=== PATIENT | male | born 1995 | race Caucasian/White ===

== ENCOUNTER 2017-06-27 17:20 | Inpatient (IN) | payer BC, OTHER ==
[~2017-06-27] VITALS: Ht 185.4 cm; Wt 63.5 kg
[2017-06-27 17:45] VITALS: BP 104/60
--- NOTE | 2017-06-27 17:45 | NUR ---
PRE-ASSESSMENT: Pre-Assessment done at intake office, client is A/O x4, he presents with flat affect, anxious mood. He appears disheveled, odorous. Pin point pupils noted. T 99, RR 18, BP 104/60, HR 102, spO2 @ 100% on RA, Pain on R leg 10. R leg with swelling, redness, tender and hot to touch, client stated "I got hit with Narcan." client did not give specifics as to what happen to his R leg. He is fully ambulatory, but favors R leg. He reports allergy to banana, stating his tongue and throat swells up. He denies any withdrawal-induced seizure. PMH: insomnia, peptic ulcer. He denies taking any medications at home. He denies any PCP. He denies any past medical history. Substance history Heroin 1gm IV daily for the past 5 months, last used this am @ 0300 1/2 gram IV.
[2017-06-27] MEDS ORDERED: MAG HYDROX/AL HYDROX/SIMETH 30 ML LIQUID UDC PO PRN (18:00)
[2017-06-27] MEDS ORDERED: ONDANSETRON ODT 4 MG TAB.RAPDIS SL PRN (18:00)
[2017-06-27] MEDS ORDERED: BUPRENORPHINE HCL 2 MG TAB.SUBL SL PRN (18:00)
[2017-06-27] MEDS ORDERED: ACETAMINOPHEN 325 MG TABLET PO PRN (18:00)
[2017-06-27] MEDS ORDERED: MIRALAX 17 GM POWD.PACK PO PRN (18:00)
[2017-06-27] MEDS ORDERED: DICYCLOMINE HCL 20 MG TABLET PO PRN (18:00)
[2017-06-27] MEDS ORDERED: MAGNESIUM HYDROXIDE 30 ML LIQUID UDC PO PRN (18:00)
[2017-06-27] MEDS ORDERED: ONDANSETRON 4 MG/2 ML VIAL IM PRN (18:00)
[2017-06-27] MEDS ORDERED: LOPERAMIDE HCL 2 MG CAPSULE PO PRN ×2 (18:00)
[2017-06-27] MEDS ORDERED: METHOCARBAMOL 750 MG TABLET PO PRN (18:00)
[2017-06-27] MEDS ORDERED: CLONIDINE HCL 0.1 MG TABLET PO PRN (18:00)
--- NOTE | 2017-06-27 18:00 | NUR ---
Client is in the floor, he is in room, tour given and client verbalizes how to use call light and bed settings. COWS 4.
[2017-06-27 18:27] LABS: BASOPHILS # (AUTO) 0.1 K/uL (0.0-8.0); BASOPHILS % (AUTO) 0.5 % (0.0-2.0); EOSINOPHILS # (AUTO) 0.6 K/uL (0.0-0.7); EOSINOPHILS % (AUTO) 4.3 % (0.0-7.0); HEMATOCRIT 35.7 % (40-50); LYMPHOCYTES # (AUTO) 2.3 K/UL (0.8-4.8); LYMPHOCYTES % (AUTO) 17.8 % (20.5-51.5); MEAN CORPUSCULAR HEMOGLOBIN 29.7 UUG (27.0-31.0); MEAN CORPUSCULAR HGB CONC 34 g/dL (32.0-37.0); MEAN CORPUSCULAR VOLUME 88.3 FL (82.0-92.0); MONOCYTES % (AUTO) 7.3 % (0.0-11.0); NEUTROPHILS # (AUTO) 9.1 K/UL (1.8-8.9); NEUTROPHILS % (AUTO) 70.1 % (38.5-71.5); PLATELET COUNT (AUTO) 366 K/UL (150-450); RED BLOOD CELL COUNT(AUTO) 4.04 MIL/UL (4.7-6.1); WHITE BLOOD COUNT (AUTO) 13.1 K/UL (4.0-11.2)
[2017-06-27 18:36] LABS: ALANINE AMINOTRANSFERASE 35 U/L (16-63); ALKALINE PHOSPHATASE 103 U/L (50-136); ASPARTATE AMINOTRANSFERASE 35 U/L (15-37); BILIRUBIN,TOTAL 0.5 mg/dL (0.2-1.0); CARBON DIOXIDE 30 mmol/L (21-32); CHLORIDE 95 mmol/L (98-107); GLUCOSE 98 mg/dL (74-106); MAGNESIUM 2.1 mg/dL (1.8-2.4); POTASSIUM 3.9 mmol/L (3.5-5.1); TOTAL PROTEIN, SERUM 7.6 g/dL (6.4-8.2); UREA NITROGEN, BLOOD 13 mg/dL (7-18)
[2017-06-27 18:51] LABS: BAND % (MANUAL) 9 % (0-10); EOSINOPHILS % (MANUAL) 4 % (0-8); LYMPHOCYTES % (MANUAL) 20 % (20-40); MONOCYTES % (MANUAL) 5 % (2-10); NEUTROPHILS % (MANUAL) 62 % (42-75)
[2017-06-27 18:57] LABS: ETHANOL < 3 MG/DL (0-0)
--- NOTE | 2017-06-27 19:00 | NUR ---
Start of Shift Patient Received. Patient is a 22 year old male readmitted to [facility] 06/27/17 to Opiate Dependence under the care of Dr. Vogt. Patient verbalizes allergies to Bananas and wishes to be full code. Patient denies past medical history. Skin check rendered and noted to be intact with right leg to be swollen. Patient explained swelling was due to Narcan injection. All other assessments to be completed. Patient is in bed sleeping but can be aroused verbally. Breathing even and non labored. No signs of pain or discomfort noted. Will continue to monitor.
--- NOTE | 2017-06-27 19:36 | NUR ---
END OF SHIFT Client is in bed, a/o x 4. He presents with anxious mood, flat affect. Temporal waste noted. Call light within reach. Endorsed to incoming nurse.
[2017-06-27 20:30] VITALS: BP 100/65
--- NOTE | 2017-06-27 20:30 | NUR ---
Admission Note Patient is a 22 year old male readmitted to [facility] to receive medical treatment for his Opiate Dependence under the care of Dr. Vogt. Patient verbalizes allergies to Bananas, wishes to be full code, following a regular diet, placed on fall precautions. Skin check rendered and noted to be intact with right leg swollen, red, and tender to touch. Patient explained "about a week and a half ago, I over dosed and was given a shot of Narcan and thats where it was from." Height noted as 6'1 and weight as 140. Lung sounds noted with wheezing and with a non productive cough. Patient explains "chuy had this cough for about 3 days." No fever noted. Bowel sounds are active in all 4 quadrants with LBM noted 06/26/17. No past medical history verbalized. No home medications noted. No history of Seizure noted. Patient denies any suicidal ideations. He describes his usage as: 1. Opiate-Heroin, for the past 5 months, using 1GM IV daily, with last use noted 06/27/17 0300 using 1 GM. Patient explains "nausea, diarrhea, tremors, Chills, sweats, stomach cramps, body aches, restless legs." Patient does not have a primary care provider and denies being hospitalized within the past 30 days. Patient reports of x10 treatment facilities with last one noted to be [facility], [place], [place] October 2016. Admitting COWS noted to be 7. All information relayed to MD with orders for labs to be rendered. PRN medications available for increased signs and symptoms of withdrawal. All needs attended to promptly. Will continue to monitor.
[2017-06-27] MEDS: DOXYCYCLINE HYCLATE 100 MG TABLET PO SCH (21:42)
--- NOTE | 2017-06-27 21:45 | NUR ---
PRN Medication Administration Patient verbalizing increased signs and symptoms of withdrawal. COWS noted to be 13. PRN Subutex 4mg administered as per order. encouraged patient to snack and drinking fluids as tolerated. Patient verbalized understanding. Will continue to monitor.
--- NOTE | 2017-06-27 22:45 | NUR ---
PRN Medication Reassessment Patient is in bed sleeping but easily aroused to verbal stimuli. Breathing even and non labored. Patient was given PRN Subutex for a COWS of 13. Patient is able to verbalize medication was effective in minimizing signs and symptoms to be tolerable. COWS noted to be 6. Will continue to monitor.
[2017-06-27 23:51] LABS: *AMPHETAMINE, URINE POSITIVE (NEGATIVE); *BARBITURATE, URINE NEGATIVE (NEGATIVE); *CANNABINOID, URINE NEGATIVE (NEGATIVE); *COCCAINE, URINE NEGATIVE (NEGATIVE); *OPIATE, URINE POSITIVE (NEGATIVE); *PHENCYCLIDINE SCREEN,URINE NEGATIVE (NEGATIVE)
[2017-06-28] VITALS: BP 96/69
[2017-06-28 04:00] VITALS: BP 96/60
--- NOTE | 2017-06-28 07:11 | NUR ---
End of Shift Patient is in bed sleeping. Breathing even and non labored. No signs of pain or discomfort noted. Patient is a 22 year old male [facility] for Opiate Dependence under the care of Dr. Vogt. Allergies to Bananas, wishes to be full code, following a regular diet. Patient set to start a 5 day Subutex taper. patient was given PRN Subutex for a COWS of 13 with medication noted to be effective. Patient was started on Doxycycline for Right leg swelling. All needs attended to promptly. Will endorse to continue plan of care as ordered.
--- NOTE | 2017-06-28 07:20 | NUR ---
Start of Shift Opal Miner received pt from night nurse, pt is a 22 year old male admitted on 06/27/17 for Heroin detoxification, placed on a 5 day Subutex taper. Last COWS of 6 reported as of 2229, per report. Pt has an allergy to Bananas, NKDA, is a full code and on a regular diet. Pt denies any PMH. Skin intact, right leg has swelling and is the result of a Narcan injection last week, per pt. Pt placed on fall and universal precautions. Opal Miner encounters pt laying in bed resting. Pt is somnolent, but able to make his needs known. Pt cooperative, speaking with eyes closed. Pt reports chills, stomach cramps and is noted to be slightly diaphoretic. Bed in low position, wheels locked, side rails up x2 and call light within reach. All safety precautions in place per hospital policy. Will continue to monitor, support and encourage according to plan of care.
[2017-06-28] MEDS: DOXYCYCLINE HYCLATE 100 MG TABLET PO SCH ×2 (08:47→21:31)
[2017-06-28] MEDS: BUPRENORPHINE HCL 2 MG TAB.SUBL SL SCH ×4 (08:48→21:31)
[2017-06-28 08:55] VITALS: BP 100/57
[2017-06-28] MEDS ORDERED: TUBERCULIN,PURIF.PROT.DERIV. 5 TU/0.1 ML TEST ID ONE (09:00)
[2017-06-28 12:15] VITALS: BP 97/62
[2017-06-28 16:58] VITALS: BP 100/65
--- NOTE | 2017-06-28 19:00 | NUR ---
Start of Shift Patient Received. Patient is in bed sleeping. Breathing even and non labored. No signs of pain or discomfort noted. Patient is a 22 year old male admitted to [facility] 06/27/17 for Opiate Dependence under the care of Dr. Vogt. Patient verbalizes allergies Bananas, wishes to be full code, following a regular diet. Denies past medical history. Patient continues on Doxycycline for possible Right leg cellulitis. Per endorsement, PPD was administered to the Right forearm. No PRN medications administered. Last noted COWS 10. All needs attended to promptly. Will continue plan of care as ordered.
--- NOTE | 2017-06-28 19:03 | NUR ---
End of Shift Chief Environmental Commitment Officer provided report to night nurse with no further comments, questions or concerns voiced. Pt is a 22 year old male admitted on 06/27/17 for Heroin detoxification, placed on a 5 day Subutex taper, tolerating well. Last COWS of 10 recorded at of 1600. Pt has an allergy to Bananas, NKDA, is a full code and on a regular diet. Pt denies any PMH. Skin intact, right leg has swelling and is the result of a Narcan injection last week, per pt. Pt placed on fall and universal precautions. Pt has been isolative to room and bed most of shift. [facility]. Pt has a flat affect and depressed mood, able to make needs known, but withdrawn and guarded. PPD administered ttoday, with results to be read after 1000 on 06/30/17. Bed in low position, wheels locked, side rails up x2 and call light within reach. All safety precautions in place per hospital policy.
[2017-06-28 20:05] VITALS: BP 109/69
[2017-06-29 00:37] VITALS: BP 100/58
[2017-06-29 04:00] VITALS: BP 91/55
--- NOTE | 2017-06-29 07:14 | NUR ---
End of Shift Patient is in bed sleeping. Breathing even and non labored. No signs of pain or discomfort noted. Patient continues on a 5 day Subutex taper. Patient verbalizes allergies Bananas, wishes to be full code, following a regular diet. Denies past medical history. Patient continues on Doxyclicine for possible Right leg cellulitis. No PRN Medication administered. Last noted COWS 9. Patient slept a total of 6 hours thru the night. All needs attended to promptly. Will endorse to continue plan of care as ordered.
--- NOTE | 2017-06-29 07:30 | NUR ---
start of shift note: received pt from shiftman nurse, pt is in stable condition at this time, pt verbalized he doesn't feel well and he is in withdrawal. pt's last cows 9. will asses pt for a/r to taper medications. will continue to monitor pt for any changes. and continue to meet pt's needs
[2017-06-29] MEDS: BUPRENORPHINE HCL 2 MG TAB.SUBL SL SCH ×3 (09:31→21:14)
[2017-06-29] MEDS: DOXYCYCLINE HYCLATE 100 MG TABLET PO SCH ×2 (09:31→21:14)
[2017-06-29 10:08] VITALS: BP_SYST 99
[2017-06-29 12:09] LABS: HEPATITIS B SURFACE AG Negative (Negative)
[2017-06-29] MEDS ORDERED: BUPRENORPHINE HCL 2 MG TAB.SUBL SL ONE (13:00)
[2017-06-29 13:43] VITALS: BP 99/67
[2017-06-29] MEDS: GABAPENTIN 300 MG CAPSULE PO SCH ×2 (15:55→21:14)
[2017-06-29 17:39] VITALS: BP 110/68
--- NOTE | 2017-06-29 19:00 | NUR ---
Start of Shift Patient Received. Patient is in bed sleeping. Breathing even and non labored. No signs of pain or discomfort noted. Patient is a 22 year old male admitted to [facility] 06/27/17 for Opiate Dependence under the care of Dr. Vogt. Patient verbalizes allergies Bananas but no known drug allergies, wishes to be full code, following a regular diet. Denies past medical history. Patient continues on Doxyclicine for possible Right leg cellulitis. Per endorsement, no significant changes noted. Patient is tolerating plan of care well. No PRN medications administered. Last noted COWS 7. All needs attended to promptly. Will continue plan of care as ordered.
--- NOTE | 2017-06-29 19:07 | NUR ---
END OF SHIFT NOTE: PT IS IN STABLE CONDITION, PT IS ADMITTED TO [facility] FOR OPIATE/BENZO WITHDRAWAL/DEPENDENCE. PTS LAST COWS 2 AND CIWA 0. PT TOLERATED MEDICATIONS WELL NO A/R TO MEDICATIONS. PT ATTENDED ALL GROUPS AND ACTIVITIES WILL ENDORSE PT TO CISSP NURSE.
[2017-06-29 20:59] VITALS: BP_SYST 108; BP_DIAS 64; BP_DIAS 74
[2017-06-29] MEDS ORDERED: CLONIDINE HCL 0.1 MG TABLET PO ONE (21:00)
[2017-06-30] VITALS: BP 101/60
[2017-06-30 04:05] VITALS: BP 103/55
--- NOTE | 2017-06-30 07:04 | NUR ---
End of Shift Patient is in bed sleeping. Breathing even and non labored. No signs of pain or discomfort noted. Patient continues on a 5 day Subutex taper. Patient verbalizes allergies Bananas with no known drug allergies, wishes to be full code, following a regular diet. Denies past medical history. Patient continues on Doxyclicine for possible Right leg cellulitis. No PRN Medication administered. Last noted COWS 7. Patient slept a total of 9 hours thru the night. All needs attended to promptly. Will endorse to continue plan of care as ordered.
--- NOTE | 2017-06-30 07:55 | NUR ---
BEGINNING OF SHIFT Patient endorsement report received from shift supervisor rn nurse, all pertinent information discussed. Patient is a 22 year old male admitted on 06/27/2017 with admitting Dx: Opiate dependence. Patient with ongoing Subutex taper. Per shift supervisor rn patient received No PRN medications. Last COWS 7. Patient slept for 9 hours. Patient with ongoing ATB therapy as ordered for right leg cellulitis, will monitor closely. patient received in bed awake, alert and oriented x4, educated regarding plan of care for the day and medication regimen with good verbal understanding, will monitor closely. fall and seizure precautions observed at all times. all needs met and rendered, will continue to monitor.
[2017-06-30 08:45] VITALS: BP 91/62
[2017-06-30] MEDS: DOXYCYCLINE HYCLATE 100 MG TABLET PO SCH ×2 (08:46→20:56)
[2017-06-30] MEDS: GABAPENTIN 300 MG CAPSULE PO SCH ×3 (08:51→20:56)
[2017-06-30] MEDS ORDERED: BUPRENORPHINE HCL 2 MG TAB.SUBL SL SCH (09:00)
[2017-06-30 13:00] VITALS: BP 110/68
[2017-06-30] MEDS: IBUPROFEN 600 MG TABLET PO PRN (14:42)
[2017-06-30] MEDS: BUPRENORPHINE HCL 2 MG TAB.SUBL SL SCH ×2 (14:42→20:56)
--- NOTE | 2017-06-30 14:42 | NUR ---
PRN IBUPROFEN Patient c/o pain to right leg 05/10, provided with non pharmacological interventions with no relief, administered ibuprofen as ordered, well tolerated, no ASE noted.
--- NOTE | 2017-06-30 15:42 | NUR ---
IBUPROFEN REASSESSMENT Patient reports medication effective, current pain level 0/10, will continue to monitor.
[2017-06-30 17:37] VITALS: BP 90/61
--- NOTE | 2017-06-30 19:14 | NUR ---
END OF SHIFT Patient alert and oriented x4, vital signs stable during shift. Patient compliant with therapeutic plan of care. Admitting Dx: Opiate dependence, Patient continues on Subutex taper as ordered, well tolerated, no ASE noted. Encouraged adequate PO fluid intake as tolerated. Patient continues on ATB therapy as ordered for Bactrim for right leg cellulitis. PRN: Motrin, was administered during shift, medication effective one hour post administration. 0900 assessment patient presented with: c/o chills, dilated pupils, mild bone and joint aches, moist eyes, and mild anxiety with cow score of: 6 . 1300 assessment patient presented with: c/o chills, dilated pupils, mild bone and joint aches, moist eyes, and mild anxiety with cow score of: 6 ; 1700 assessment patient presented with: heart rate of: 90, c/o chills, dilated pupils, mild bone and joint aches, moist eyes, and mild anxiety with cow score of: 7. Patient encouraged to attend group/therapy sessions to learn new coping skills to prevent relapse, denies SI/HI. Patient compliant with plan of care during shift. Safety measures in place. call light kept with in reach. Patient endorsement report given to overnight associate nurse, all pertinent information discussed. safety measures in place. will continue to monitor.
[2017-06-30 20:00] VITALS: BP 99/53
--- NOTE | 2017-06-30 20:00 | NUR ---
1999 Patient received sleeping soundly. Aroused for vial signs and nurse assess. Patient makes verbal grunts and gives no eye contact to nurse's greeting and introduction. Patient's color is rondon-pink and his skin is warm, dry and intact. Patient is oriented to person, place, day and his personal situation. Reoriented to date and time. Vital sign signs are: 97.8-65-16 99/53, O2 Sat 98%, COWS 5. Patient gives facial frown and is resistive and uncooperative with nurse assess. Repeated questions asked of him are ignored. Patient keeps his eyes closed while nurse is speaking to him. Patient offers no requests for anything or c/o anything at this time. Patient was admitted on 06/27/17 for Heroin withdrawal and he is currently on a 5-Day Subutex medication taper, which he has apparently been tolerating well. Bed is locked and in lowest position, bed rails are up X 1 and call light within patient's easy reach.
[2017-07-01] VITALS: BP 102/66
--- NOTE | 2017-07-01 00:15 | NUR ---
" I want 2 hot packs for my leg" When nurse asks to see patient's leg, Patient becomes angry and loudly says, " I don't know what the problem is! I just ask the nurse for the hot packs and she gives them to me, that's all!" Calm explanation given to patient that his leg must be visualized and assessed by nurse, in order for appropriate nursing treatment to be given. Patient then asked again to show nurse his leg. Right upper inner leg area moderately swollen, slightly reddened with intact skin. Old cold disposable hot pack noted on area.
[2017-07-01] MEDS: diphenhydrAMINE 50 MG CAPSULE PO PRN (00:17)
--- NOTE | 2017-07-01 00:17 | NUR ---
PRN MEDICATION: Prn Benadryl 50 mg p.o. given for sleep.
[2017-07-01] MEDS: HYDROXYZINE PAMOATE 25 MG CAPSULE PO PRN (00:18)
[2017-07-01] MEDS: IBUPROFEN 600 MG TABLET PO PRN (00:18)
--- NOTE | 2017-07-01 00:18 | NUR ---
PRN MEDICATIONS: Prn Vistaril 50 mg p.o. given for anxiety and Prn Motrin 600 mg p.o. given for right leg pain, 6/10 pain scale.
--- NOTE | 2017-07-01 01:16 | NUR ---
2 disposable hot packs given to patient who states that he wants to place them to his right leg himself. Patient states that heat "feels better than cold packs".
--- NOTE | 2017-07-01 01:18 | NUR ---
REASSESSMENT PRN MEDICATIONS: Patient is sleeping soundly with eyes closed and respirations quiet, even, unlabored at 12. Patient Not Awakened for assessment.
--- NOTE | 2017-07-01 04:00 | NUR ---
Patient refused to be awakened for V/S to be done at this time.
--- NOTE | 2017-07-01 06:30 | NUR ---
0630 Patient slept a total of 5 hours and he had 1 void and no stools. Total intake was 600 ml p.o. Prn medications given noted separately per floor protocol. V/SS afebrile, last COWS 3 at 0000. Patient interacts very little with nurse, along with giving rare eye contact, when he is awake. Patient is presently sleeping soundly, comfortably with eyes closed and respirations quiet, even, unlabored at 12
--- NOTE | 2017-07-01 07:49 | NUR ---
Start of shift note; Received report from night nurse. Patient is a 22 year old male admitted on 06/27/17 for Opiate dependence. Patient was placed on a 5 day Subutex taper. Patient noted to be allergic to bananas. Patient noted to have right leg possible cellulitis with current Antibiotic treatment. Patient is on fall and seizure precaution. Bed in lowest position, call light within reach. Patient is currently resting with eyes closed, respirations even and unlabored. All safety measures secured. Will continue to monitor patient.
[2017-07-01 08:00] VITALS: BP 96/63
[2017-07-01] MEDS: GABAPENTIN 300 MG CAPSULE PO SCH ×3 (08:24→21:23)
[2017-07-01] MEDS: DOXYCYCLINE HYCLATE 100 MG TABLET PO SCH ×2 (08:25→21:23)
[2017-07-01] MEDS: BUPRENORPHINE HCL 2 MG TAB.SUBL SL SCH ×3 (08:25→21:22)
[2017-07-01 12:00] VITALS: BP 94/60
[2017-07-01 16:00] VITALS: BP 98/62
--- NOTE | 2017-07-01 18:23 | NUR ---
End of shift note; Patient is AOX4. Patient is a 22 year old male admitted on 06/27/17 for Opiate dependence. Patient was placed on a 5 day Subutex taper. Patient noted to be allergic to bananas. Patient noted to have right leg possible cellulitis with current Antibiotic treatment. Patient is on fall and seizure precaution. Patient remained compliant with treatment plan. Medications were effective in reducing withdrawal symptoms. All safety measures secured. Met all needs.
[2017-07-01 20:00] VITALS: BP 95/49
--- NOTE | 2017-07-01 20:00 | NUR ---
Start of shift note; Patient is AOX4. Patient is a 22 year old male admitted on 06/27/17 for Opiate dependence. Patient was placed on a 5 day Subutex taper. Patient noted to be allergic to bananas. Patient noted to have right leg possible cellulitis with current antibiotic treatment. Patient is on fall and seizure precaution. Patient remained compliant with treatment plan. All safety measures secured. Will continue to monitor.
[2017-07-02] VITALS: BP 83/50
[2017-07-02 04:00] VITALS: BP 80/52
--- NOTE | 2017-07-02 06:52 | NUR ---
End of Shift note: Patient is AOX4. Patient is a 22 year old male admitted on 06/27/17 for Opiate dependence. Patient was placed on a 5 day Subutex taper. Patient noted to be allergic to bananas. Patient noted to have right leg cellulitis with current antibiotic treatment. Patient was isolated in room during shift, no prn meds given. Last Cows was 2, pt slept 9 hrs during shift. All pertinent information endorsed to am nurse. Pt will be monitor by am staff.
--- NOTE | 2017-07-02 07:30 | NUR ---
START OF SHIFT NOTE Received report from night nurse, 22 year old male admitted on 06/27/17 for Opiate dependence. Patient was placed on a 5 day Subutex taper. Allergic to bananas. Per endorsement patient noted to have right leg possible cellulitis with current Antibiotic treatment and Pt was not given any PRN, last COWS-2, slept for 9 hours.Received pt alert awake oriented x4, Breathing normal no SOB noted respirations even and unlabored. Educated patient on her current plan of care for the day and her medication regimen, and encourage Po fluids as tolerated. All safety measures in place, Call light within reach. Will continue to monitor.
[2017-07-02 08:00] VITALS: BP 100/62
[2017-07-02] MEDS: DOXYCYCLINE HYCLATE 100 MG TABLET PO SCH ×2 (08:54→21:44)
[2017-07-02] MEDS: GABAPENTIN 300 MG CAPSULE PO SCH ×3 (08:54→21:44)
[2017-07-02] MEDS ORDERED: BUPRENORPHINE HCL 2 MG TAB.SUBL SL SCH (09:00)
[2017-07-02] MEDS ORDERED: DICY20TA28 PO (10:02)
[2017-07-02] MEDS ORDERED: DIPH50CA37 PO (10:02)
[2017-07-02] MEDS ORDERED: METH-406 PO (10:02)
[2017-07-02] MEDS ORDERED: GABA-534 PO (10:02)
[2017-07-02] MEDS ORDERED: HYDR-3895 PO (10:02)
[2017-07-02] MEDS ORDERED: IBUP-1955 PO (10:02)
[2017-07-02] MEDS ORDERED: DOXY100T2 PO (10:02)
[2017-07-02 12:00] VITALS: BP 90/55
[2017-07-02 16:00] VITALS: BP 108/65
--- NOTE | 2017-07-02 19:04 | NUR ---
END OF SHIFT NOTE Gave report to night nurse, 22 year old male admitted on 06/27/17 for Opiate dependence. Patient completed his 5 day Subutex taper tolerated well. Medications were effective in reducing withdrawal symptoms.Pt cont with Po Antibiotic for right leg possible cellulitis. no s/s of adverse reaction noted. Patient is on fall and seizure precaution. Patient remained compliant with treatment plan. Vital signs remained stable. No PRN medications were given during shift. Pt scheduled for discharge in AM. All safety measures in place, Call light within reach. Pt endorsed to night nurse in stable condition.
--- NOTE | 2017-07-02 19:15 | NUR ---
START OF SHIFT NOTE : Pt. is 22 year old male admitted on 06/27/17 for Opiate dependence. Patient completed his 5 day Subutex taper tolerated well. Medications were effective in reducing withdrawal symptoms. Pt cont with Po Antibiotic for right leg possible cellulitis. no s/s of adverse reaction noted. Patient is on fall and seizure precaution. Patient remained compliant with treatment plan. Pt. still trying to give urine sample for UDS. Vital signs remained stable. Pt scheduled for discharge in AM tomorrow. All safety measures in place, Call light within reach.
[2017-07-02 20:00] VITALS: BP 90/60
--- NOTE | 2017-07-02 21:00 | NUR ---
PRN BENADRYL , VISTARIL Pt. complains of sleeplessness, increased level of anxiety. PRN BENADRYL , VISTARIL given as ordered. Safety measures in place : bed on lowest position with side rails x2 up for safety, call light within reach. Will continue to monitor closely and offer help.
[2017-07-02] MEDS: HYDROXYZINE PAMOATE 25 MG CAPSULE PO PRN (21:44)
[2017-07-02] MEDS: diphenhydrAMINE 50 MG CAPSULE PO PRN (21:44)
--- NOTE | 2017-07-02 22:00 | NUR ---
REASSESSMENT COCO TRINIDAD Pt. is sleeping , RR=16 , unlabored and even. Safety measures in place : bed on lowest position with side rails x2 up for safety, call light within reach. Will continue to monitor closely and offer help.
[2017-07-03 05:57] LABS: *AMPHETAMINE, URINE NEGATIVE (NEGATIVE); *BARBITURATE, URINE NEGATIVE (NEGATIVE); *CANNABINOID, URINE NEGATIVE (NEGATIVE); *COCCAINE, URINE NEGATIVE (NEGATIVE); *OPIATE, URINE POSITIVE (NEGATIVE); *PHENCYCLIDINE SCREEN,URINE NEGATIVE (NEGATIVE)
--- NOTE | 2017-07-03 06:50 | NUR ---
END OF SHIFT NOTE : Pt. is 22 year old male admitted on 06/27/17 for Opiate dependence. Patient completed his 5 day Subutex taper tolerated well. Medications were effective in reducing withdrawal symptoms. Pt cont with Po Antibiotic for right leg possible cellulitis. no s/s of adverse reaction noted. Patient is on fall and seizure precaution. Patient remained compliant with treatment plan. Vital signs remained stable. Pt scheduled for discharge in AM today. Pt remains compliant with the treatment plan. PRN BENADRYL, VISTARIL were given during my shift. V/S remain WNL. RR=16, even and unlabored, lungs clear upon auscultation, abdomen soft and non- distended. Pt denies nausea, vomiting and diarrhea. LAST COWS=1 at 0400 , [id number]=342 ml, voided x 1, slept 10 hours. Safety measures in place : bed on lowest position with side rails x2 up for safety, call light within reach. Will continue to monitor closely and offer help.
--- NOTE | 2017-07-03 07:00 | NUR ---
START OF SHIFT NOTE: RECEIVED PT FROM WINDOW TREATMENT INSTALLER NURSE,PT IS IN STABLE CONDITION AT THIS TIME, NO S/S OF PAIN OR DISCOMFORT. PT IS ADMITTED TO [facility] FOR OPIATE WITHDRAWAL/DEPENDENCE. PT HAS A FLAT AFFECT. PTS LAST COWS 2 D/T PAIN ON HIS LEG. PT IS SET TO DISCHARGE TOMORROW, WILL ASSIST PT DISCHARGING AND WILL CONTINUE TO MONITOR PT FOR ANY CHANGES.
[2017-07-03] MEDS: DOXYCYCLINE HYCLATE 100 MG TABLET PO SCH (09:00)
[2017-07-03] MEDS: GABAPENTIN 300 MG CAPSULE PO SCH (09:00)
--- NOTE | 2017-07-03 09:47 | NUR ---
DISCHARGE NOTE: PT LEFT THE UNIT IN STABLE CONDITION, NO WITHDRAWAL SYMPTOMS NOTED. PT REFUSED SCHEDULED MORNING MEDICATIONS. PT NOTED WITH A LIMP PRIOR TO ADMISSION. PT ADMITTED FOR OPIATE WITHDRAWAL/DEPENDENCE. PT TEACHING ADMINISTERED AND PT VERBALIZED UNDERSTANDING. ALL PERSONAL BELONGINGS WERE RETURNED
== END 2017-07-03 09:47 | disposition home or self-care (01) | DRG 895 ==
LOC: SRC 17:20
PROVIDERS: ADMIT Internal Medicine; ATTEND Internal Medicine
PROC: HZ2ZZZZ Detoxification Services for Substance Abuse Treatment (ICD-10-PCS; principal; 2017-06-27)
PROC: HZ31ZZZ Individual Counseling for Substance Abuse Treatment, Behavioral (ICD-10-PCS; 2017-06-30)
DX: F11.23 Opioid dependence with withdrawal (principal); E87.1 Hypo-osmolality and hyponatremia; L03.115 Cellulitis of right lower limb; F15.20 Other stimulant dependence, uncomplicated; Z91.89 Other specified personal risk factors, not elsewhere classified; Z83.3 Family history of diabetes mellitus; Z65.3 Problems related to other legal circumstances; F17.210 Nicotine dependence, cigarettes, uncomplicated; Z59.1 Inadequate housing; G89.29 Other chronic pain; M54.5 Low back pain; R13.10 Dysphagia, unspecified; E86.1 Hypovolemia; S81.831S Puncture wound without foreign body, right lower leg, sequela; W26.8XXS Contact with other sharp object(s), not elsewhere classified, sequela; Z20.5 Contact with and (suspected) exposure to viral hepatitis; D64.9 Anemia, unspecified; F39 Unspecified mood [affective] disorder; E87.8 Other disorders of electrolyte and fluid balance, not elsewhere classified
CPT/HCPCS: 36415; 80307; 80324; 80361; 83735; 85025; 86592; 86705; 86803; 87340; 87806; A4663; G0480; Q0163

== ENCOUNTER 2017-08-14 19:08 | Inpatient (IN) | payer BC, OTHER ==
[~2017-08-14] VITALS: Ht 185.4 cm; Wt 63.5 kg
[~2017-08-14 19:08] MED LIST: DICY20TA28 PO; DIPH50CA37 PO; DOXY100T2 PO; GABA-534 PO; HYDR-3895 PO; IBUP-1955 PO; METH-406 PO
[2017-08-14 20:10] VITALS: BP 98/53
--- NOTE | 2017-08-14 20:15 | NUR ---
Pre-Admission Pre-admission assessment performed in the intake department of [facility]. Pt is A&O x4 and ambulatory with a steady gait. He appears slightly disheveled and is odorous. He does not seem intoxicated and answers all questions appropriately in a soft tone. Vital signs are B/P 98/53, HR 73, RR 18, O2 sat 96%, T 98.2, pain 0/10. He denies drug allergies and is allergic to bananas. Pt denies any seizure history. He reports that he has been using heroin IV and crystal meth IV occasionally. Last used heroin today at 1000. Last used crystal meth 08/11/17. Pt is stable and [facility].
[2017-08-14 21:34] LABS: BASOPHILS # (AUTO) 0.1 K/uL (0.0-8.0); BASOPHILS % (AUTO) 0.5 % (0.0-2.0); EOSINOPHILS # (AUTO) 0.4 K/uL (0.0-0.7); EOSINOPHILS % (AUTO) 3.3 % (0.0-7.0); HEMATOCRIT 34.4 % (40-50); HEMOGLOBIN 11.6 G/DL (14.0-18.0); LYMPHOCYTES # (AUTO) 2.7 K/UL (0.8-4.8); LYMPHOCYTES % (AUTO) 21.3 % (20.5-51.5); MEAN CORPUSCULAR HGB CONC 34 g/dL (32.0-37.0); MONOCYTES # (AUTO) 0.7 K/UL (0.1-1.30); MONOCYTES % (AUTO) 5.1 % (0.0-11.0); NEUTROPHILS # (AUTO) 8.9 K/UL (1.8-8.9); NEUTROPHILS % (AUTO) 69.8 % (38.5-71.5); PLATELET COUNT (AUTO) 260 K/UL (150-450); WHITE BLOOD COUNT (AUTO) 12.8 K/UL (4.0-11.2)
[2017-08-14 21:52] LABS: ALANINE AMINOTRANSFERASE 26 U/L (16-63); ALKALINE PHOSPHATASE 101 U/L (50-136); ASPARTATE AMINOTRANSFERASE 21 U/L (15-37); BILIRUBIN,TOTAL 0.4 mg/dL (0.2-1.0); CARBON DIOXIDE 33 mmol/L (21-32); CHLORIDE 100 mmol/L (98-107); CREATININE 0.8 mg/dL (0.6-1.3); GLUCOSE 81 mg/dL (74-106); MAGNESIUM 2.3 mg/dL (1.8-2.4); POTASSIUM 3.3 mmol/L (3.5-5.1); TOTAL PROTEIN, SERUM 8.4 g/dL (6.4-8.2); UREA NITROGEN, BLOOD 11 mg/dL (7-18)
[2017-08-14 21:57] LABS: ETHANOL < 3 MG/DL (0-0)
--- NOTE | 2017-08-14 22:15 | NUR ---
ADMISSION Pt is a 22 yo male admitted to [facility] on 08/14/17 at 2028 for medically supervised detox. He is A&O x4 and ambulatory with a steady gait. Body check performed by BIOFUELS TECHNOLOGY MANAGER and skin check performed by the nurse. Pt reports allergies to bananas, would like to be full code status, and is on a regular diet. Pt is thin, disheveled, and odorous. He is at times drowsy throughout assessment but is cooperative. Vital signs in intake are B/P 105/42, HR 79, RR 18, O2 sat 99%, T 98.2, and pain 0/10. Pt is 6'1" and weighs 140lb. PMH of peptic ulcer not currently active, overdose, and insomnia. Lung sounds clear, PERRLA, brisk capillary refill, bowel sounds present, skin is warm and dry. He has a healing scab on the right thigh. History of Use 1) Heroin IV 1-2 grams per day for the past 30 days. Last used 1 gram on 08/14/17 at 1200. He has used heroin for 7 years 2) Crystal Meth 0.5 grams occasionally for the past 30 days. Last used 1 gram on 08/11/17. He has used crystal meth for 7 years. Treatment History 1) [facility] 05/2017 2) [facility] 03/2017 Pt reports 13 other treatments since he started using. Pt smokes 10 cigarettes per day. He decided to come to treatment today because "I want to be better". Symptoms when he doesn't use include "restless legs, sweating, body aches, stomach cramps, nausea, diarrhea, and chills". Pt is currently homeless and does not have a primary care physician. Dr. Vogt aware of pts admission with orders received. COWS score 2. He has some anxiety but reports feeling tired. Pt educated regarding use of the call light and all questions answered. Fall precautions in place. Bed is down with call light in reach.
--- NOTE | 2017-08-14 23:40 | NUR ---
Potassium replaced K+ 3.3 K-Dur 40mEq administered per MD orders.
[2017-08-15] VITALS: BP 105/50
[2017-08-15 04:00] VITALS: BP_SYST 115; BP_SYST 96; BP_DIAS 63; BP_DIAS 66
--- NOTE | 2017-08-15 04:00 | NUR ---
0400 COWS deferred COWS ordered Q4HWA. Pt is lying in bed resting with eyes closed. Vital signs obtained. Respirations even and unlabored. Safety measures in place.
--- NOTE | 2017-08-15 07:08 | NUR ---
Start of Shift Endorsement received from nightshift nurse. Pt is a 22 y/o male admitted for Heroin dependence. PT has been placed on a 4 day Subutex taper set to began 08/15/17. Pt is mildly withdrawing AEB COWS 2 at 0400. PT is asleep at this time, breathing even and unlabored, responsive to touch and name. Pt has not received any PRN medications during nightshift. Pt has yet to provide urine sample for UDS. VS WNL, Full Code. PT is alert and oriented x4. Pt is in STABLE condition at this time. Remains compliant with medication and diet regimen. All needs have been met, All safety measures in place per hospital policy. Bed in lowest position, side rails up x2, call-light within reach. Will continue to monitor
--- NOTE | 2017-08-15 07:15 | NUR ---
END OF SHIFT Report provided to day shift nurse. Pt is lying in bed resting. Pt is a 22 yo re-admit her for opiate dependence. He is A&O and ambulatory. Allergic to Bananas, full code, regular diet. Pt reports using heroin IV daily and crystal meth IV occasionally. 4 day subutex taper scheduled to start today based on COWS score. He slept upon admission for 8 hours. Last COWS 2. He drank 296mL. K+ was 3.3 on admission and replaced with K-Dur. Pt has been unable to provide urine sample for UDS. Safety measures in place.
[2017-08-15 08:00] VITALS: BP 92/56
[2017-08-15 12:00] VITALS: BP 109/62
[2017-08-15 15:08] LABS: *AMPHETAMINE, URINE NEGATIVE (NEGATIVE); *BARBITURATE, URINE NEGATIVE (NEGATIVE); *CANNABINOID, URINE NEGATIVE (NEGATIVE); *COCCAINE, URINE NEGATIVE (NEGATIVE); *OPIATE, URINE POSITIVE (NEGATIVE); *PHENCYCLIDINE SCREEN,URINE NEGATIVE (NEGATIVE)
[2017-08-15 16:00] VITALS: BP 125/70
--- NOTE | 2017-08-15 19:15 | NUR ---
End of Shift Endorsement given nightshift nurse. Pt is a 22 y/o male admitted for Heroin dependence. Pt has been on Subutex taper. Pt is moderately withdrawing AEB COWS 10 at 1600. PT has spent the whole day sleeping, reporting that he is tired and "dope sick", breathing even and unlabored, responsive to touch and name. PT has not participated in groups and activities. Pt has not received any PRN medications during nightshift. Intake: 1250ml, Void x1, BM x0.Pt has yet to provide urine sample for UDS. VS WNL, Full Code. PT is alert and oriented x4. Pt is in STABLE condition at this time. Remains compliant with medication and diet regimen. All needs have been met, All safety measures in place per hospital policy. Bed in lowest position, side rails up x2, call-light within reach. Will continue to monitor
--- NOTE | 2017-08-15 19:55 | NUR ---
START OF SHIFT Received report from day shift nurse. Pt is lying in bed resting and easily arousable. He is a 22 yo male admitted to [facility] [place] on 08/14 for opiate dependence. He is A&O and ambulatory. Allergic to bananas, full code status, and on a regular diet. PMH of peptic ulcer, overdose 05/2017, and insomnia. On admission he reported using heroin IV 1 gram per day and crystal meth IV 0.5 grams occasionally. Pt started a 4 day Subutex taper today. He reports low back ache, chills, flushing, and nasal stuffiness. Taper due tonight. Fall precautions in place. Bed is down with call light in reach.
[2017-08-15 20:00] VITALS: BP 107/62
--- NOTE | 2017-08-15 21:00 | NUR ---
PRN Robaxin Pt reports low back pain 06/09. PRN Robaxin administered.
[2017-08-16] VITALS: BP 101/58
--- NOTE | 2017-08-16 | NUR ---
0000 COWS deferred COWS ordered Q4HWA. Pt is lying in bed resting with eyes closed. Vital signs obtained. Safety measures in place.
[2017-08-16 04:00] VITALS: BP 99/70
--- NOTE | 2017-08-16 07:10 | NUR ---
END OF SHIFT Report provided to day shift nurse. Pt is lying in bed resting . He is a 22 yo male admitted to [facility] on 08/14 for opiate dependence. He is A&O x ambulatory. Allergic to bananas, full code status, and on a regular diet. PMH of peptic ulcer, overdose 05/2017, and insomnia. On admission he reported using heroin IV 1 gram per day and crystal meth IV 0.5 grams occasionally. Pt started a 4 day Subutex taper today. PRN Robaxin administered for back pain. Last COWS 7 before medications. He drank 500mL and slept for 9 hours. Fall precautions in place. Bed is down with call light in reach.
--- NOTE | 2017-08-16 08:00 | NUR ---
START OF SHIFT: RECEIVED PT A/O X 4. HE PRESENTS WITH BLUNTED AFFECT AND DEPRESSED MOOD. HE DENIES S/I AND H/I. HE C/O SWEATS,CHILLS,ANXIETY AND H/A 5/10 ON PAIN SCALE. COWS 8. SUBUTEX TAPER IN PROGRESS.MOTRIN PRN GIVEN FOR H/A. WILL MONITOR EFFECTIVENESS OF PRN MED. ENCOURAGED INCREASED FLUIDS FOR HYDRATION. ENCOURAGED GROUP ATTENDANCE TO IMPROVE COPING SKILLS AND PREVENT RELAPSE. WILL CONTINUE TO MONITOR AND OFFER SUPPORT
[2017-08-16 08:01] VITALS: BP 100/60
--- NOTE | 2017-08-16 09:00 | NUR ---
PT STATES MOTRIN WAS EFFECTIVE . HE REPORTS H/A IG GONE . HE REPORTS 0/10 ON SCALE.
[2017-08-16 11:08] LABS: HEPATITIS B SURFACE AG Negative (Negative)
[2017-08-16 12:00] VITALS: BP 97/60
[2017-08-16 16:00] VITALS: BP 109/60
--- NOTE | 2017-08-16 18:18 | NUR ---
END OF SHIFT: PT STAYED IN BED IN HIS ROOM MOST OF SHIFT. HE WAS ENCOURAGED TO SHOWER BUT HE REFUSED AND STATED HE DID NOT FEEL UP TO IT TODAY. PT CONTINUES TO PRESENT WITH BLUNTED AFFECT AND DEPRESSED MOOD. HE DENIES S/I AND H/I. SUBUTEX TAPER IN PROGRESS. LAST COWS 5. HE WAS COMPLIANT WITH INCREASED FLUIDS AND HIS APPETITE IS FAIR. WILL PASS SHIFT REPORT TO ONCOMING DIRECTOR FOOD AND BEVERAGE.
--- NOTE | 2017-08-16 18:39 | NUR ---
END OF SHIFT: PT COMPLETED TAPER. DISCHARGE SCHEDULED FOR 08/17. SHE WAS GIVEN PRN MOTRIN FOR H/A WHICH WAS EFFECTIVE. SHE ATTENDED GROUPS AND IS COMPLIANT WITH MEDS. WILL PASS SHIFT REPORT TO [facility] NIGHT NURSE. Addendum: 08/16/17 at 1849 by SWATI ALONZO RN DISREGARD LAST NOT IT WAS MEANT FOR ANOTHER PT.
--- NOTE | 2017-08-16 19:15 | NUR ---
START OF SHIFT NOTE : Pt is a 22 y/o male admitted for Heroin dependence. PT has been placed on a 4 day Subutex taper set to began 08/15/17. Pt is mildly withdrawing LAST COWS=5 at 16:00. PT is asleep at this time, breathing even and unlabored, responsive to touch and name. HE PRESENTS WITH BLUNTED AFFECT AND DEPRESSED MOOD. HE DENIES S/I AND H/I. HE C/O ANXIETY AND mild headache . SUBUTEX TAPER IN PROGRESS. WILL MONITOR EFFECTIVENESS OF PRN MED. ENCOURAGED INCREASED FLUIDS FOR HYDRATION. ENCOURAGED GROUP ATTENDANCE TO IMPROVE COPING SKILLS AND PREVENT RELAPSE. Safety measures in place : bed on lowest position with side rails x2 up for safety, call light within reach. Will continue to monitor closely and offer help.
[2017-08-16 20:00] VITALS: BP 107/58
--- NOTE | 2017-08-17 06:36 | NUR ---
END OF SHIFT NOTE : Pt is a 22 y/o male admitted for Heroin dependence. PT has been placed on a 4 day Subutex taper set to began 08/15/17. PT is asleep at this time, breathing even and unlabored, responsive to touch and name Pt remains compliant with the treatment plan. No PRNs were given during my shift. V/S remain WNL. RR=16, even and unlabored, lungs clear upon auscultation, abdomen soft and non- distended. Pt denies nausea, vomiting and diarrhea. LAST COWS=3 at 0400 , XXLMEG=1063 ml, voided x2 , slept 10 hours. Safety measures in place : bed on lowest position with side rails x2 up for safety, call light within reach. Will continue to monitor closely and offer help.
--- NOTE | 2017-08-17 07:55 | NUR ---
START OF SHIFT: RECEIVED PT A/O X 4. HE PRESENTS WITH BLUNTED AFFECT AND DEPRESSED MOOD. HE DENIES S/I AND H/I. HE C/O ANXIETY AND BODY ACHES. COWS 2. SUBUTEX TAPER IN PROGRESS.STRONGLY ENCOURAGED A SHOWER TODAY TO PROMOTE WELLNESS.ENCOURAGED INCREASED FLUIDS FOR HYDRATION. ENCOURAGED GROUP ATTENDANCE TO IMPROVE COPING SKILLS AND PREVENT RELAPSE. WILL CONTINUE TO MONITOR AND OFFER SUPPORT
[2017-08-17 08:00] VITALS: BP 90/60
[2017-08-17 12:00] VITALS: BP 90/55
[2017-08-17 16:00] VITALS: BP 117/75
--- NOTE | 2017-08-17 17:57 | NUR ---
1600 COWS AND CIWA HELD PT WAS ASLEEP. 1700 MEDS HELD DUE TO SEDATION.
--- NOTE | 2017-08-17 18:27 | NUR ---
END OF SHIFT: PT STAYED IN BED IN HIS ROOM MOST OF SHIFT. HE WAS ENCOURAGED TO SHOWER AND AGREED BUT DID NOT COMPLY.HE IS ODOROUS AND DISHEVELED. PT CONTINUES TO PRESENT WITH BLUNTED AFFECT AND DEPRESSED MOOD. HE DENIES S/I AND H/I. SUBUTEX TAPER IN PROGRESS. LAST COWS AT NOON 2. 1500 SUBUTEX GIVEN PER . 1700 DOSE HELD PT WAS ASLEEP. 1600 COWS AND CIWA DEFERRED. WILL PASS SHIFT REPORT TO ONCOMING GRIPPER MACHINE OPERATOR.
--- NOTE | 2017-08-17 19:15 | NUR ---
Patient is a 28 year old female admitted for opiate/BZO dependence who was placed on a 5-day Subutex and 5-day Valium taper as ordered. No adverse reactions noted. Prior to admission, patient was using 150 to 200 mg of Oxycontin, 150 to 200 mg of Oxycodone, 150 to 200 mg of hydrocodone and 1-10mg of Xanax daily x 6 years. Has past medical hx of pre-DM, anxiety, depression, insomnia, and seizure. NKA. FULL CODE. Regular diet. On fall and seizure precautions. Alert and oriented x 4. Verbally responsive. Appears anxious with mild sweats and noted with tremors. Respirations even and unlabored. No SOB noted. Skin warm and dry to touch. Abdomen soft and non-distended with (+) BS in all 4 quadrants. No complains of N/V/D or constipation noted. No complains of abdominal discomfort noted. Bladder non-distended. Voids independently. Ambulatory ad jayy with steady gait. Educated patient on her current plan of care for the day and her medication regimen. Encouraged oral fluid intake and encouraged group participation to learn new skills to prevent relapse. Safety measures in place : bed on lowest position with side rails x2 up for safety, call light within reach. Will continue to monitor closely and offer help.
[2017-08-17 20:00] VITALS: BP 100/60
--- NOTE | 2017-08-17 23:00 | NUR ---
PRN Benadryl Pt c/o inability to sleep. PRN Benadryl administered. Safety measures in place : bed on lowest position with side rails x2 up for safety, call light within reach. Will continue to monitor closely and offer help.
--- NOTE | 2017-08-17 23:45 | NUR ---
RE-ASSESSMENT Crow Pt. is sleeping, RR=16, unlabored and even.Safety measures in place : bed on lowest position with side rails x2 up for safety, call light within reach. Will continue to monitor closely and offer help.
--- NOTE | 2017-08-17 23:52 | NUR ---
RN note Pt threw up right after Subutex scheduled at [address] Vogt notified and he ordered one-time dose of Subutex 2 mg SL.
[2017-08-18 06:00] VITALS: BP 111/65
--- NOTE | 2017-08-18 06:51 | NUR ---
END OF SHIFT NOTE : Pt is a 22 y/o male admitted for Heroin dependence. PT has been placed on a 4 day Subutex taper set to began 08/15/17. HE PRESENTS WITH BLUNTED AFFECT AND DEPRESSED MOOD. HE DENIES S/I AND H/I. HE C/O ANXIETY AND mild headache . SUBUTEX TAPER IN PROGRESS. Pt remains partially compliant with the treatment plan. PRN BENADRYL given during my shift. V/S remain WNL. RR=16, even and unlabored, lungs clear upon auscultation, abdomen soft and non- distended. Vomited x2 during the shift, refused ZOFRAN IM, COWS=11 around midnight, SUBUTEX 2mg SL given ONCE as ordered. LAST COWS=3 at 0400 , INTAKE= 855 ml, voided x2 , slept hours. Safety measures in place : bed on lowest position with side rails x2 up for safety, call light within reach. Will continue to monitor closely and offer help.
[2017-08-18 08:00] VITALS: BP 95/60
--- NOTE | 2017-08-18 08:20 | NUR ---
START OF SHIFT: RECEIVED PT A/O X 4. HE PRESENTS WITH BLUNTED AFFECT AND IRRITABLE MOOD. HE DENIES S/I AND H/I. HE C/O BODY AND BACK ACHES. COWS 2. SUBUTEX TAPER IN PROGRESS. ENCOURAGED A SHOWER TODAY TO PROMOTE WELLNESS AND PT REFUSED BUT WON'T DISCUSS WHY HE REFUSES. PT PULLED COVERS OVER HEAD AND ASKED FOR ME NOT TO TALK TO HIM.ENCOURAGED INCREASED FLUIDS FOR HYDRATION. ENCOURAGED GROUP ATTENDANCE TO IMPROVE COPING SKILLS AND PREVENT RELAPSE. WILL CONTINUE TO MONITOR AND OFFER SUPPORT Addendum: 08/18/17 at 1050 by SWATI ALONZO RN CORRECTION COWS 3
[2017-08-18 12:00] VITALS: BP 94/58
[2017-08-18] MEDS ORDERED: CLON0.1T14 PO (15:29)
[2017-08-18] MEDS ORDERED: BACL20TA PO (15:29)
[2017-08-18] MEDS ORDERED: DICY20TA28 PO (15:29)
[2017-08-18] MEDS ORDERED: GABA-534 PO (15:30)
[2017-08-18] MEDS ORDERED: DIPH50CA37 PO (15:30)
[2017-08-18] MEDS ORDERED: IBUP-1955 PO (15:30)
[2017-08-18] MEDS ORDERED: HYDR-3895 PO (15:30)
[2017-08-18 16:00] VITALS: BP 98/60
--- NOTE | 2017-08-18 18:27 | NUR ---
END OF SHIFT: PT STAYED IN BED IN HIS ROOM MOST OF SHIFT. PT SHOWERED TODAY AFTER EDUCATING HIM ON IMPORTANCE OF GOOD HYGIENE PT CONTINUES TO PRESENT WITH BLUNTED AFFECT AND APATHETIC MOOD. HE DENIES S/I AND H/I. SUBUTEX TAPER IN PROGRESS. LAST COWS 2. NO PRNS GIVEN ON THIS SHIFT. WILL PASS SHIFT REPORT TO ONCOMING QUALITY CONTROL TESTER.
--- NOTE | 2017-08-18 19:15 | NUR ---
START OF SHIFT NOTE : Patient is a 28 year old female admitted for opiate/BZO dependence who was placed on a 5-day Subutex and 5-day Valium taper as ordered. No adverse reactions noted. Prior to admission, patient was using 150 to 200 mg of Oxycontin, 150 to 200 mg of Oxycodone, 150 to 200 mg of hydrocodone and 1-10mg of Xanax daily x 6 years. Has past medical hx of pre-DM, anxiety, depression, insomnia, and seizure. NKA. FULL CODE. Regular diet. On fall and seizure precautions. Alert and oriented x 4. Verbally responsive. Appears anxious with mild sweats and noted with tremors. Respirations even and unlabored. No SOB noted. Skin warm and dry to touch. Abdomen soft and non-distended with (+) BS in all 4 quadrants. Bladder non-distended. Voids independently. Ambulatory ad jayy with steady gait. Educated patient on her current plan of care for the day and her medication regimen. Encouraged oral fluid intake and encouraged group participation to learn new skills to prevent relapse. Pt. took a shower today. Last COWS=2 at 16:00. Safety measures in place : bed on lowest position with side rails x2 up for safety, call light within reach. Will continue to monitor closely and offer help.
[2017-08-18 20:00] VITALS: BP 92/51
--- NOTE | 2017-08-19 06:32 | NUR ---
END OF SHIFT NOTE : Patient is a 28 year old female admitted for opiate/BZO dependence who was placed on a 5-day Subutex and 5-day Valium taper as ordered. No adverse reactions noted. Prior to admission, patient was using 150 to 200 mg of Oxycontin, 150 to 200 mg of Oxycodone, 150 to 200 mg of hydrocodone and 1-10mg of Xanax daily x 6 years. Has past medical hx of pre-DM, anxiety, depression, insomnia, and seizure. NKA. FULL CODE. Regular diet. On fall and seizure precautions. Alert and oriented x 3. Verbally responsive. Voids independently. Ambulatory ad jayy with steady gait. Educated patient on her current plan of care for the day and her medication regimen. Encouraged oral fluid intake and encouraged group participation to learn new skills to prevent relapse. Pt remains compliant with the treatment plan. Clonidine NOT given in HS because of low BP. No PRNs were given during my shift. RR=16, even and unlabored, lungs clear upon auscultation, abdomen soft and non- distended. Pt denies nausea, vomiting and diarrhea. LAST COWS=3 at 0400 , INTAKE= 250 ml, voided x1 , slept11 hours. Safety measures in place : bed on lowest position with side rails x2 up for safety, call light within reach. Will continue to monitor closely and offer help. Addendum: 08/19/17 at 0635 by CAMERON ABDI RN Wrong patient. See nex END OF SHIFT NOTE
--- NOTE | 2017-08-19 06:35 | NUR ---
END OF SHIFT NOTE : Pt is a 22 y/o male admitted for Heroin dependence. PT has been placed on a 4 day Subutex taper set to began 08/15/17. PT is asleep at this time, breathing even and unlabored, responsive to touch and name. HE PRESENTS WITH BLUNTED AFFECT AND DEPRESSED MOOD. HE DENIES S/I AND H/I. HE C/O ANXIETY AND mild headache . SUBUTEX TAPER IN PROGRESS. WILL MONITOR EFFECTIVENESS OF PRN MED. ENCOURAGED INCREASED FLUIDS FOR HYDRATION. ENCOURAGED GROUP ATTENDANCE TO IMPROVE COPING SKILLS AND PREVENT RELAPSE. Safety measures in place : bed on lowest position with side rails x2 up for safety, call light within reach. Will continue to monitor closely and offer help.Pt remains compliant with the treatment plan. Clonidine NOT given in HS because of low BP. No PRNs were given during my shift. RR=16, even and unlabored, lungs clear upon auscultation, abdomen soft and non- distended. Pt denies nausea, vomiting and diarrhea. LAST COWS=3 at 0400 , INTAKE= 250 ml, voided x1 , slept11 hours. Safety measures in place : bed on lowest position with side rails x2 up for safety, call light within reach. Will continue to monitor closely and offer help.
--- NOTE | 2017-08-19 07:05 | NUR ---
Start of Shift Endorsement received from nightshift nurse. Pt is a 22 y/o male admitted for Heroin dependence. PT has been placed on a 4 day . Pt has been scheduled to complete the taper today. Pt is mildly withdrawing AEB COWS 3 at 0400. Pt has not received any PRN medications. Pt reports sleeping 11 hours and feels rested at this time. VS WNL, Full Code. PT is alert and oriented x4. Pt is in STABLE condition at this time. Remains compliant with medication and diet regimen. All needs have been met, All safety measures in place per hospital policy. Bed in lowest position, side rails up x2, call-light within reach. Will continue to monitor
[2017-08-19 08:00] VITALS: BP 90/52
[2017-08-19 15:03] VITALS: BP 101/61
[2017-08-19 16:00] VITALS: BP 94/55
--- NOTE | 2017-08-19 19:28 | NUR ---
End of Shift Endorsement given nightshift nurse. Pt is a 22 y/o male admitted for Heroin dependence. Pt has been on Subutex taper. Pt is mildly withdrawing AEB COWS 4 at 1600. PT has participated in groups and activities. Pt has been scheduled to be discharged tomorrow. All discharge education has been provided, all discharge documentation has been completed. . Pt has not received any PRN medications. Intake: 1855ml, Void x1, BM x0.Pt has yet to provide urine sample for UDS. VS WNL, Full Code. PT is alert and oriented x4. Pt is in STABLE condition at this time. Remains compliant with medication and diet regimen. All needs have been met, All safety measures in place per hospital policy. Bed in lowest position, side rails up x2, call-light within reach. Will continue to monitor
[2017-08-19 20:00] VITALS: BP 115/64
--- NOTE | 2017-08-19 20:00 | NUR ---
Start of Shift Pt is a 22 year old male admitted for Opiate dependence, placed on 4 day Subutex taper, completed. Pt reported using heroin IV 1g/daily for 30 days and Crystal Meth IV 0.5g/occ. PMH: Peptic ulcer, insomnia and OD 05/2017. Pt reports allergies to Bananas, fall precautions, regular diet and full code. Upon assessment, pt presents with anxiety, skin flushed, reports mild body aches, respirations even/unlabored, denies n/v/d, denies SOB/chest pain, skin flushed. Pt is scheduled for discharge tomorrow. Safety measures in place, call light within reach, side rails up x2, bed locked and in low position. Will continue to monitor.
[2017-08-20] VITALS: BP 99/50
--- NOTE | 2017-08-20 | NUR ---
Vital Signs BP 99/50, pulse 93, resp 14, SpO2 96% room air, temp 98.3 COWS deferred d/t pt sleeping, to assess while pt is awake as ordered. Safety measures in place, will continue to monitor
[2017-08-20 04:00] VITALS: BP 92/58
--- NOTE | 2017-08-20 04:00 | NUR ---
Vital Signs BP 92/58, pulse 78, resp 16, SpO2 98% room air, temp 98.3 COWS deferred d/t pt sleeping, to assess while pt is awake as ordered. Safety measures in place, will continue to monitor
--- NOTE | 2017-08-20 07:00 | NUR ---
End of Shift Pt is a 22 year old male admitted for Opiate dependence, placed on 4 day Subutex taper, completed. Pt reported using heroin IV 1g/daily for 30 days and Crystal Meth IV 0.5g/occ. PMH: Peptic ulcer, insomnia and OD 05/2017. Pt reports allergies to Bananas, fall precautions, regular diet and full code. During shift, pt presented with anxiety, skin flushed, reports mild body aches scheduled medications administered, COWS 3. Pt slept for 6 hours, intake of 1500 ml PO, voids x0 and stool x0. No PRN medications administered during shift. Pt is scheduled for discharge today. Safety measures in place, call light within reach, side rails up x2, bed locked and in low position. Endorsed to day shift nurse.
--- NOTE | 2017-08-20 07:08 | NUR ---
Start of Shift Endorsement received from nightshift nurse. Pt is a 22 y/o male admitted for Heroin dependence. PT has been placed on a 4 day . Pt has completed the taper and has been scheduled to be discharged today, 08/20/17. Discharge education has been provided for the pt. All discharge documentation has been completed. Pt is mildly withdrawing AEB COWS 3 at 0400. Pt has not received any PRN medications. Pt reports sleeping 8 hours and feels rested at this time. VS WNL, Full Code. PT is alert and oriented x4. Pt is in STABLE condition at this time. Remains compliant with medication and diet regimen. All needs have been met, All safety measures in place per hospital policy. Bed in lowest position, side rails up x2, call-light within reach. Will continue to monitor
[2017-08-20 08:00] VITALS: BP 102/60
[2017-08-20 09:11] VITALS: BP 97/65
--- NOTE | 2017-08-20 11:52 | NUR ---
Discharge note PT has been discharged from [facility] to [facility]. PT is in Stable condition, VS WNL. Denies suicidal and homicidal ideations at this time. . All documentation has been completed, paperwork signed and dated. Pt left with all of his belongings, medications and prescriptions. Pt has been discharged from [facility] on 08/20/17 at 1152. has been Notified.
== END 2017-08-20 11:52 | disposition other institution (70) | DRG 895 ==
LOC: SRC 20:03
PROVIDERS: ADMIT Internal Medicine; ATTEND Internal Medicine
PROC: HZ2ZZZZ Detoxification Services for Substance Abuse Treatment (ICD-10-PCS; principal; 2017-08-14)
PROC: HZ31ZZZ Individual Counseling for Substance Abuse Treatment, Behavioral (ICD-10-PCS; 2017-08-16)
PROC: HZ41ZZZ Group Counseling for Substance Abuse Treatment, Behavioral (ICD-10-PCS; 2017-08-19)
DX: F11.23 Opioid dependence with withdrawal (principal); E87.3 Alkalosis; R13.10 Dysphagia, unspecified; F39 Unspecified mood [affective] disorder; Z83.3 Family history of diabetes mellitus; Z59.0 Homelessness; Z59.1 Inadequate housing; G89.29 Other chronic pain; E86.0 Dehydration; F17.210 Nicotine dependence, cigarettes, uncomplicated; D64.9 Anemia, unspecified; E87.6 Hypokalemia; M54.5 Low back pain; D72.823 Leukemoid reaction; F15.10 Other stimulant abuse, uncomplicated; Z79.899 Other long term (current) drug therapy; Z20.5 Contact with and (suspected) exposure to viral hepatitis
CPT/HCPCS: 36415; 70030-TC; 80307; 80361; 83735; 85025; 86592; 86705; 86803; 87340; 87806; A4663; G0480; J0500; J2405; Q0163